=== PATIENT | male | born 1970 | race Caucasian/White ===

== ENCOUNTER 2017-03-28 10:54 | Observation (INO) | payer MEDICARE, OTHER ==
[~2017-03-28] VITALS: Ht 177.8 cm; Wt 111.1 kg
[2017-03-28 12:38] LABS: HEMOGLOBIN 15.8 gm/dl (14.0-17.5); RED BLOOD COUNT 5.41 M/UL (4.20-5.50); WHITE BLOOD COUNT 14.9 K/UL (4.5-11.0)
[2017-03-28 13:07] LABS: BUN/CREATININE RATIO 15 (0-10)
[2017-03-29] MEDS ORDERED: LISINOPRIL20 MG PO (00:53)
[2017-03-29] MEDS ORDERED: NORVASC 5 MG TAB5 MG PO (00:53)
[2017-03-29] MEDS ORDERED: NEURONTIN800 MG PO (00:54)
[2017-03-29] MEDS ORDERED: ZOFRAN8 MG PO (00:55)
[2017-03-29] MEDS ORDERED: PHENERGAN 25 MG25 M1 PO (00:55)
[2017-03-29] MEDS ORDERED: AMBIEN CR12.5 MG PO (00:55)
[2017-03-29 04:59] LABS: RED BLOOD COUNT 4.75 M/UL (4.20-5.50); WHITE BLOOD COUNT 10.1 K/UL (4.5-11.0)
[2017-03-29 05:00] LABS: HEMOGLOBIN 13.6 gm/dl (14.0-17.5)
[2017-03-29 05:14] LABS: BUN/CREATININE RATIO 19 (0-10)
[2017-03-30 04:32] LABS: HEMOGLOBIN 13.6 gm/dl (14.0-17.5); RED BLOOD COUNT 4.7 M/UL (4.20-5.50); WHITE BLOOD COUNT 8.6 K/UL (4.5-11.0)
[2017-03-30 04:38] LABS: BUN/CREATININE RATIO 16 (0-10)
[2017-03-30] MEDS ORDERED: FLAGYL500 MG PO (11:24)
[2017-03-30] MEDS ORDERED: AMBIEN CR12.5 MG PO (11:25)
[2017-03-30] MEDS ORDERED: CIPRO500 MG PO (11:26)
[2017-03-30] MEDS ORDERED: LORTAB 7.5-3251 EACH PO (11:27)
[2017-03-30] MEDS ORDERED: TYLENOL 325MG325 MG PO (11:28)
[2017-05-18] MEDS ORDERED: LISINOPRIL-HCT1 EAC1 PO (09:03)
== END 2017-03-30 13:09 | disposition home or self-care (01) ==
LOC: ER1 10:54 → MED SURG 4 15:15 → ZEROF 15:15 → MED SURG 4 20:40
PROVIDERS: Emergency Medicine; ADMIT Emergency Medicine
DX: K52.9 Noninfective gastroenteritis and colitis, unspecified (principal); K62.5 Hemorrhage of anus and rectum; K27.9 Peptic ulcer, site unspecified, unspecified as acute or chronic, without hemorrhage or perforation; I10 Essential (primary) hypertension; F41.9 Anxiety disorder, unspecified; G89.29 Other chronic pain; M54.9 Dorsalgia, unspecified; E66.9 Obesity, unspecified; D72.829 Elevated white blood cell count, unspecified; G40.909 Epilepsy, unspecified, not intractable, without status epilepticus; K21.9 Gastro-esophageal reflux disease without esophagitis; Z87.19 Personal history of other diseases of the digestive system; Z79.891 Long term (current) use of opiate analgesic; Z79.899 Other long term (current) drug therapy; Z90.49 Acquired absence of other specified parts of digestive tract
CPT/HCPCS: 36415; 80048; 80053; 82272; 83605; 83735; 84484; 85025; 85027; 85610; 85730; 86850; 86900; 86901; 93005; 96365; 96366; 96375; 96376; 99285; G0378; J0360; J1335; J2270; J2405; J2550; J7030; J7050; Q9962

== ENCOUNTER 2017-04-12 17:04 | Emergency (ER) | payer MEDICARE, OTHER ==
[~2017-04-12 17:04] MED LIST: AMBIEN CR12.5 MG PO; CIPRO500 MG PO; FLAGYL500 MG PO; LISINOPRIL20 MG PO; LORTAB 7.5-3251 EACH PO; NEURONTIN800 MG PO; NORVASC 5 MG TAB5 MG PO; PHENERGAN 25 MG25 M1 PO; TYLENOL 325MG325 MG PO; ZOFRAN8 MG PO
[2017-04-12 20:49] LABS: HEMOGLOBIN 15.3 gm/dl (14.0-17.5); RED BLOOD COUNT 5.29 M/UL (4.20-5.50); WHITE BLOOD COUNT 11.3 K/UL (4.5-11.0)
[2017-04-12 21:12] LABS: BUN/CREATININE RATIO 13 (0-10)
[2017-05-18] MEDS ORDERED: LISINOPRIL-HCT1 EAC1 PO (09:03)
== END 2017-04-12 23:00 | disposition home or self-care (01) ==
LOC: ER1 17:04
PROVIDERS: Emergency Medicine
DX: R10.9 Unspecified abdominal pain (principal); Z93.1 Gastrostomy status
CPT/HCPCS: 36415; 80053; 81001; 82272; 83605; 83690; 85025; 96361; 96374; 96375; 99284; J2270; J2405; J7030; J7050; Q9962

== ENCOUNTER → 2017-04-20 | Outpatient (CLI) | payer MEDICARE, OTHER ==
[~2017-04-20] MED LIST changes: +LISINOPRIL-HCT1 EAC1 PO
== END ==
LOC: MRI 04-19 10:30
DX: M43.26 Fusion of spine, lumbar region (principal); M54.5 Low back pain; M54.16 Radiculopathy, lumbar region; M47.896 Other spondylosis, lumbar region; M99.76 Connective tissue and disc stenosis of intervertebral foramina of lower extremity; Z98.1 Arthrodesis status; M48.06 Spinal stenosis, lumbar region
CPT/HCPCS: 72148